=== PATIENT | female | born 1955 | race Caucasian/White ===

== ENCOUNTER 2016-11-21 12:36 | Emergency (ER) | payer MEDICAID, OTHER ==
[2016-11-21 12:53] VITALS: RESP 18; TEMP 98
[2016-11-21 13:03] LABS: COLOR YELLOW; LEUKOCYTE ESTERASE,URINE 1+ (NEGATIVE); NITRITE,URINE NEGATIVE (NEGATIVE)
[2016-11-21 13:17] LABS: BACTERIA TRACE /hpf (NONE SEEN); RENAL EPITHELIAL CELLS OCCASIONAL /hpf (NONE SEEN)
[2016-11-21] MEDS ORDERED: NS 1,000 ML IV ONE (13:17)
--- NOTE | 2016-11-21 13:19 | EDPHY ---
H & P Stated Complaint: c/o lower back pain and Vag D/C x 2 wks - bro of kidney CA Time Seen by Provider: 11/21/16 12:55 HPI/ROS: CHIEF COMPLAINT: Bilateral flank pain HISTORY OF PRESENT ILLNESS: Patient is a 61-year-old woman who comes to the emergency department complaining of bilateral flank pain and mild dysuria. She states that it is primarily her left flank until yesterday when it began hurting more her right. She is concerned and tearful because 3 of her family members have been diagnosed with renal cancer. She also has noticed that her urine has been dark compared to usual. She denies vaginal bleeding or discharge. No abdominal pain. No fever. she states that the pain is intermittent. REVIEW OF SYSTEMS: Constitutional: denies: chills, fever, recent illness, recent injury EENTM: denies: blurred vision, double vision, nose congestion Respiratory: denies: cough, shortness of breath Cardiac: denies: chest pain, irregular heart rate, lightheadedness, palpitations Gastrointestinal/Abdominal: denies: abdominal pain, diarrhea, nausea, vomiting, blood streaked stools Genitourinary: See HPI Musculoskeletal: denies: joint pain, muscle pain Skin: denies: lesions, rash, jaundice, bruising Neurological: denies: headache, numbness, paresthesia, tingling, dizziness, weakness Hematologic/Lymphatic: denies: blood clots, easy bleeding, easy bruising Immunologic/allergic: denies: HIV/AIDS, transplant EXAM: GENERAL: Well-appearing, well-nourished and in no acute distress. HEAD: Atraumatic, normocephalic. EYES: Pupils equal round and reactive to light, extraocular movements intact, sclera anicteric, conjunctiva are normal. ENT: TMs normal, nares patent, oropharynx clear without exudates. Moist mucous membranes. NECK: Normal range of motion, supple without lymphadenopathy or JVD. LUNGS: Breath sounds clear to auscultation bilaterally and equal. No wheezes rales or rhonchi. HEART: Regular rate and rhythm without murmurs, rubs or gallops. ABDOMEN: Soft, nontender, normoactive bowel sounds. No guarding, no rebound. No masses appreciated. BACK: No CVA tenderness, no spinal tenderness, step-offs or deformities EXTREMITIES: Normal range of motion, no pitting or edema. No clubbing or cyanosis. NEUROLOGICAL: Cranial nerves II through XII grossly intact. Normal speech, normal gait. 5/5 strength, normal movement in all extremities, normal sensation PSYCH: Normal mood, normal affect. SKIN: Warm, dry, normal turgor, no visible rashes or lesions. Source: Patient Exam Limitations: No limitations - Personal History Current Tetanus Diphtheria and Acellular Pertussis (TDAP): Yes - Medical/Surgical History Hx Asthma: No Hx Chronic Respiratory Disease: No Hx Diabetes: No Hx Cardiac Disease: Yes Hx Renal Disease: No Hx Cirrhosis: No Hx Alcoholism: No Hx HIV/AIDS: No Hx Splenectomy or Spleen Trauma: No Other PMH: HTN. psh-jan, - Family History Significant Family History: No pertinent family hx - Social History Smoking Status: Never smoked Alcohol Use: Sober Drug Use: None Constitutional: Initial Vital Signs Temperature (C) 36.6 C 11/21/16 12:48 Heart Rate 68 11/21/16 12:48 Respiratory Rate 18 11/21/16 12:48 Blood Pressure 152/92 H 11/21/16 12:48 O2 Sat (%) 97 11/21/16 12:48 O2 Delivery Mode Room Air Allergies/Adverse Reactions: adhesive tape Allergy (Intermediate, Verified 12/31/15 08:31) Rash albuterol Allergy (Verified 12/31/15 08:31) Home Medications: Medication Instructions Recorded HYDROCHLOROTHIAZIDE 25 mg PO 08/26/10 Cephalexin [Keflex] 500 mg PO TID #21 cap 11/21/16 Medical Decision Making - Diagnostics Imaging: Discussed imaging studies w/ call center operations manager Radiologist ED Course/Re-evaluation: We discussed the CT and lab results. The patient is relieved. Start her on Keflex for urinary tract infection. She understands and agrees with this plan. Discussed follow-up and indications for returning. Differential Diagnosis: Partial list of the Differential diagnosis considered include but were not limited to; urinary tract infection, kidney stone and although unlikely based on the history and physical exam, I also considered renal cancer, aneurysm, dissection. I discussed these differential diagnoses and the plan with the patient as well as the usual and expected course. The patient understands that the diagnosis is provisional and that in medicine we are not always correct and that further workup is often warranted. Usual and customary warnings were given. All of the patient's questions were answered. The patient was instructed to return to the emergency department should the symptoms at all worsen or return, otherwise to followup with the physician as we discussed. - Data Points Laboratory Results: Laboratory Results 11/21/16 13:25 11/21/16 13:25 Medications Given: Discontinued Medications Sodium Chloride (Ns) 1,000 mls @ 0 mls/hr IV ONCE ONE PRN Reason: Wide Open Stop: 11/21/16 13:18 Last Admin: 11/21/16 14:02 Dose: 1,000 mls Departure - Departure Disposition: Home, Routine, Self-Care Clinical Impression: Urinary tract infection Qualifiers: Urinary tract infection type: acute cystitis Hematuria presence: with hematuria Qualified Code(s): N30.01 - Acute cystitis with hematuria Condition: Fair Instructions: Urinary Tract Infection in Women (ED) Referrals: Blake Flannery DO [Primary Care Provider] - As per Instructions Prescriptions: Cephalexin [Keflex] 500 mg PO TID #21 cap
[2016-11-21 13:31] LABS: % IMMATURE GRANULYOCYTES 0.2 % (0.0-1.1); ABSOLUTE IMMATURE GRANULOCYTES 0.02 10^3/uL (0.00-0.10); ADD DIFF? NO; ADD MORPH? NO; ADD SCAN? NO; ATYPICAL LYMPHOCYTE FLAG 20 (0-99); FRAGMENT RBC FLAG 0 (0-99); HEMATOCRIT 39.5 % (38.0-47.0); HEMOGLOBIN 13.6 g/dL (12.6-16.3); LEFT SHIFT FLG 0 (0-99); LIPEMIA HEMOLYSIS FLAG 90 (0-99); MEAN CELL HEMOGLOBIN 31.7 pg (27.9-34.1); MEAN CELL HEMOGLOBIN CONCENTR. 34.4 g/dL (32.4-36.7); MEAN CELL VOLUME 92.1 fL (81.5-99.8); MEAN PLATELET VOLUME 8.9 fL (8.7-11.7); PLATELET CLUMPS FLAG 0 (0-99); PLATELET COUNT 182 10^3/uL (150-400); RED BLOOD CELL COUNT 4.29 10^6/uL (4.18-5.33); RED CELL DISTRIBUTION WIDTH 13.5 % (11.5-15.2)
[2016-11-21 13:48] LABS: ANION GAP 16 mEq/L (8-16); CALCIUM 8.8 mg/dL (8.5-10.4); CARBON DIOXIDE 26 mEq/l (22-31); CHLORIDE 99 mEq/L (97-110); CREATININE 0.7 mg/dL (0.6-1.0); GLOMERULAR FILTRATION RATE > 60; GLUCOSE 86 mg/dL (70-100); POTASSIUM 3.9 mEq/L (3.5-5.2); SODIUM 141 mEq/L (134-144)
[2016-11-21 18:15] VITALS: BP 139/83; PULSE 60; O2SAT 98
== END 2016-11-21 14:26 | disposition home or self-care (01) ==
LOC: CED 12:36
DX: N30.01 Acute cystitis with hematuria (principal); B96.89 Other specified bacterial agents as the cause of diseases classified elsewhere; I10 Essential (primary) hypertension
CPT/HCPCS: 74176-PO; 80048-PO; 81003-PO; 81015-PO; 85025-PO

== ENCOUNTER 2018-03-01 | Emergency (ER) | payer MEDICAID | END 2018-03-01 13:14 | disposition home or self-care (01) | DX: M20.11 Hallux valgus (acquired), right foot (principal); M79.674 Pain in right toe(s); I10 Essential (primary) hypertension | CPT/HCPCS: 73660-PO; L4386 ==

== ENCOUNTER → 2018-08-06 | Outpatient (CLI) | payer MEDICAID | LOC: CIMAGING 17:41 | PROVIDERS: ATTEND Family Medicine | DX: M25.512 Pain in left shoulder (principal); R07.9 Chest pain, unspecified | CPT/HCPCS: 71046-PO; 73030-PO ==